=== PATIENT | female | born 1970 | race Caucasian/White ===

== ENCOUNTER 2023-02-21 05:43 | Inpatient (IN) | payer BC ==
[2023-02-16 14:35] VITALS: BMI 44.4
[2023-02-21] MEDS ORDERED: Midazolam HCl 2 mg/2 ml Vial ONE (06:34)
[2023-02-21] MEDS ORDERED: Fentanyl 250 MCG/5 ML VIAL ONE (06:34)
[2023-02-21] MEDS ORDERED: Scopolamine 1.5 mg/72 hour Patch ONE (06:37)
[2023-02-21] MEDS ORDERED: EPINEPHrine 1 MG/ML AMP ONE (06:38)
[2023-02-21] MEDS ORDERED: Bupivacaine 0.25% HCL 30 ML VIAL ONE (06:38)
[2023-02-21 06:45] LABS: #Eosinphils 0.2 thou/uL (0.0-0.7); #Monocytes 0.4 thou/uL (0.11-0.59); #Neutrophils 3.6 thou/uL (1.40-6.50); %Basophils 0.5 % (0.0-1.0); %Eosinophils 3.6 % (0.0-10.0); %Lymphocytes 32.7 % (21.0-51.0); %Monocytes 6.2 % (0.0-10.0); %Neutrophils 56.8 % (42.0-75.0); Hematocrit 39.3 % (36.0-47.0); Hemoglobin 12.8 g/dL (12.0-16.0); Mean Corpuscular HGB CONC 32.6 g/dL (32.0-36.0); Mean Platelet Volume 9.5 fL (7.4-10.4); Platelet Count 326 10x3/uL (130-400); RBC Distribution Width 13.8 % (11.5-14.5); Red Blood Cell (RBC) Count 4.27 mill/uL (4.20-5.40); White Blood Cell (WBC) Count 6.3 10x3/uL (4.8-10.8)
[2023-02-21] MEDS ORDERED: Ondansetron HCl/PF 4 MG/2 ML Vial IVP PRN (07:01)
[2023-02-21] MEDS ORDERED: Meperidine HCl/PF 25 MG/ML VIAL SLOW IVP PRN ×2 (07:01)
[2023-02-21] MEDS ORDERED: Promethazine HCl 25 MG/ML VIAL IM PRN ×2 (07:01→12:01)
[2023-02-21] MEDS ORDERED: HYDROmorphone 2 MG/ML VIAL SLOW IVP PRN (07:01)
[2023-02-21] MEDS ORDERED: cefOXitin 2 GM VIAL ONE ×2 (07:32→10:09)
[2023-02-21] MEDS ORDERED: Sodium Chloride 0.9% 100 ML ONE (07:32)
[2023-02-21] MEDS ORDERED: Ondansetron PF 4 MG/2 ML Vial ONE ×2 (07:33→12:05)
[2023-02-21] MEDS ORDERED: Dexamethasone 20 MG/5 ML VIAL ONE (07:33)
[2023-02-21] MEDS ORDERED: diphenhydrAMINE 50 MG/ML VIAL ONE (07:33)
[2023-02-21] MEDS ORDERED: PHENYLEPHRINE-NS 100 MCG/ML 10 ML SYRINGE ONE (07:33)
[2023-02-21] MEDS ORDERED: PROPOFOL 200 MG/20 ML VIAL ONE (07:33)
[2023-02-21] MEDS ORDERED: Succinylcholine 200 MG/10 ml SYRINGE FS ONE (07:33)
[2023-02-21] MEDS ORDERED: Rocuronium Bromide 10 MG/ML (10ML VIAL) ONE (07:33)
[2023-02-21] MEDS ORDERED: Lidocaine 1% PF 5 ML VIAL ONE (07:33)
[2023-02-21] MEDS ORDERED: SUGAMMADEX SODIUM 200 MG/2 ML VIAL ONE (10:03)
[2023-02-21] MEDS ORDERED: Rocuronium Bromide 50 MG/5 ML VIAL ONE (10:03)
[2023-02-21] MEDS ORDERED: Sevoflurane 250 ML INH ANEST BOTTLE ONE (10:03)
[2023-02-21] MEDS ORDERED: Ondansetron PF 4 MG/2 ML Vial IVP PRN (12:01)
[2023-02-21] MEDS ORDERED: HumaLOG 300 UNITS/3 ML VIAL SC PRN (12:01)
[2023-02-21] MEDS ORDERED: hydrALAZINE 20 MG/ML VIAL SLOW IVP PRN (12:01)
[2023-02-21] MEDS ORDERED: diphenhydrAMINE 50 MG/ML VIAL IVP PRN (12:01)
[2023-02-21] MEDS ORDERED: Dextrose 50% Abboject 50 ML SYRINGE SLOW IVP PRN (12:01)
[2023-02-21] MEDS ORDERED: Dextrose 5% in Water 1,000 ML IV PRN (12:01)
[2023-02-21] MEDS ORDERED: Ipratropium/Albuterol 3 ML NEB NEB PRN (12:01)
[2023-02-21] MEDS ORDERED: Glucagon 1 MG/ML KIT IM PRN (12:01)
[2023-02-21] MEDS ORDERED: fentaNYL 50 mcg/mL 1 mL Vial ONE (12:05)
[2023-02-21] MEDS ORDERED: fentaNYL PF 100 MCG/2 ML SYRINGE ONE (12:19)
[2023-02-21] MEDS ORDERED: HYDROmorphone 0.5 MG/0.5 ML SYRINGE ONE (12:29)
[2023-02-21] MEDS: D5 1/2 NS w/20 mEq KCL 1,000 ML IV SCH ×2 (14:53→23:17)
[2023-02-21] MEDS: Morphine 2 MG/ML VIAL SLOW IVP PRN ×2 (15:09→19:41)
[2023-02-21] MEDS: Ketorolac Tromethamine 30 MG/ML VIAL IVP SCH ×2 (17:24→23:17)
[2023-02-21] MEDS: busPIRone HCl 10 MG TAB PO SCH (19:32)
[2023-02-22] MEDS: D5 1/2 NS w/20 mEq KCL 1,000 ML IV SCH ×2 (05:15→17:35)
[2023-02-22] MEDS: Ketorolac Tromethamine 30 MG/ML VIAL IVP SCH ×3 (05:15→17:34)
[2023-02-22 06:11] LABS: #Neutrophils 9.7 thou/uL (1.40-6.50); %Basophils 0.1 % (0.0-1.0); %Lymphocytes 9.8 % (21.0-51.0); %Monocytes 8.1 % (0.0-10.0); %Neutrophils 81.7 % (42.0-75.0); Mean Corpuscular HGB CONC 32.9 g/dL (32.0-36.0); Mean Corpuscular Hemoglobin 29.7 pg (27.0-31.0); Mean Corpuscular Volume 90.5 fl (78.0-98.0); Mean Platelet Volume 10.2 fL (7.4-10.4); Platelet Count 414 10x3/uL (130-400); RBC Distribution Width 13.8 % (11.5-14.5); Red Blood Cell (RBC) Count 3.06 mill/uL (4.20-5.40); White Blood Cell (WBC) Count 11.9 10x3/uL (4.8-10.8)
[2023-02-22 06:17] LABS: Anion Gap 14 mmol/L (10-20); BUN (Urea Nitrogen) 15 mg/dL (9.8-20.1); Calc. Creatinine Clearance 164 mL/min (70-130); Calcium 8.6 mg/dL (7.8-10.44); Carbon Dioxide 19 mmol/L (22-29); Chloride 110 mmol/L (98-107); Estimated GFR 79; Glucose 201 mg/dL (70-105); Hematocrit 27.7 % (36.0-47.0); Hemoglobin 9.1 g/dL (12.0-16.0); Potassium 4.2 mmol/L (3.5-5.1); Sodium 139 mmol/L (136-145)
[2023-02-22] MEDS ORDERED: Atenolol 25 MG TAB PO SCH (09:00)
[2023-02-22] MEDS: Pantoprazole 40 MG VIAL IVP SCH (11:21)
[2023-02-22] MEDS: busPIRone HCl 10 MG TAB PO SCH ×2 (11:22→20:03)
[2023-02-22] MEDS ORDERED: Sodium Chloride 0.9% 1,000 ML IV SCH (16:30)
[2023-02-22 16:53] LABS: #Neutrophils 7.8 thou/uL (1.40-6.50); %Basophils 0.1 % (0.0-1.0); %Lymphocytes 19.9 % (21.0-51.0); %Monocytes 9.4 % (0.0-10.0); %Neutrophils 70.2 % (42.0-75.0); Hematocrit 23.1 % (36.0-47.0); Hemoglobin 7.7 g/dL (12.0-16.0); Mean Corpuscular HGB CONC 33.3 g/dL (32.0-36.0); Mean Corpuscular Hemoglobin 30.2 pg (27.0-31.0); Mean Corpuscular Volume 90.6 fl (78.0-98.0); Mean Platelet Volume 9.7 fL (7.4-10.4); Platelet Count 387 10x3/uL (130-400); RBC Distribution Width 14.4 % (11.5-14.5); Red Blood Cell (RBC) Count 2.55 mill/uL (4.20-5.40); White Blood Cell (WBC) Count 11.1 10x3/uL (4.8-10.8)
[2023-02-22 17:42] LABS: #Monocytes 1.1 thou/uL (0.11-0.59); #Neutrophils 7.5 thou/uL (1.40-6.50); %Basophils 0.1 % (0.0-1.0); %Lymphocytes 22.1 % (21.0-51.0); %Monocytes 9.6 % (0.0-10.0); %Neutrophils 67.7 % (42.0-75.0); Hematocrit 23.7 % (36.0-47.0); Hemoglobin 7.8 g/dL (12.0-16.0); Mean Corpuscular HGB CONC 32.9 g/dL (32.0-36.0); Mean Corpuscular Hemoglobin 30.4 pg (27.0-31.0); Mean Corpuscular Volume 92.2 fl (78.0-98.0); Mean Platelet Volume 9.5 fL (7.4-10.4); Platelet Count 378 10x3/uL (130-400); RBC Distribution Width 14.3 % (11.5-14.5); Red Blood Cell (RBC) Count 2.57 mill/uL (4.20-5.40)
[2023-02-22] MEDS: Morphine 2 MG/ML VIAL SLOW IVP PRN (20:04)
[2023-02-23] MEDS: D5 1/2 NS w/20 mEq KCL 1,000 ML IV SCH ×5 (01:02→23:49)
[2023-02-23] MEDS: Ketorolac Tromethamine 30 MG/ML VIAL IVP SCH ×4 (01:02→23:49)
[2023-02-23 06:57] LABS: #Neutrophils 5.6 thou/uL (1.40-6.50); %Basophils 0.1 % (0.0-1.0); %Lymphocytes 31.8 % (21.0-51.0); %Monocytes 10.2 % (0.0-10.0); %Neutrophils 57.4 % (42.0-75.0); Hematocrit 24.2 % (36.0-47.0); Hemoglobin 7.9 g/dL (12.0-16.0); Mean Corpuscular HGB CONC 32.6 g/dL (32.0-36.0); Mean Corpuscular Hemoglobin 29.4 pg (27.0-31.0); Mean Platelet Volume 9.2 fL (7.4-10.4); Platelet Count 296 10x3/uL (130-400); RBC Distribution Width 15.8 % (11.5-14.5); Red Blood Cell (RBC) Count 2.69 mill/uL (4.20-5.40); White Blood Cell (WBC) Count 9.8 10x3/uL (4.8-10.8)
[2023-02-23 07:19] LABS: Anion Gap 8 mmol/L (10-20); BUN (Urea Nitrogen) 14 mg/dL (9.8-20.1); Calc. Creatinine Clearance 183 mL/min (70-130); Calcium 8.4 mg/dL (7.8-10.44); Carbon Dioxide 24 mmol/L (22-29); Chloride 112 mmol/L (98-107); Estimated GFR 90; Glucose 141 mg/dL (70-105); Potassium 3.7 mmol/L (3.5-5.1); Sodium 140 mmol/L (136-145)
[2023-02-23] MEDS: Pantoprazole 40 MG VIAL IVP SCH (10:27)
[2023-02-23] MEDS: busPIRone HCl 10 MG TAB PO SCH ×2 (10:27→20:41)
[2023-02-23] MEDS: Hydrocodone-Acetamin 15 ML UDCUP PO PRN ×2 (10:27→20:41)
[2023-02-23 18:45] LABS: #Monocytes 0.8 thou/uL (0.11-0.59); #Neutrophils 5.2 thou/uL (1.40-6.50); %Basophils 0.2 % (0.0-1.0); %Eosinophils 0.2 % (0.0-10.0); %Lymphocytes 32.4 % (21.0-51.0); %Neutrophils 57.6 % (42.0-75.0); Hematocrit 25.1 % (36.0-47.0); Hemoglobin 8.1 g/dL (12.0-16.0); Mean Corpuscular HGB CONC 32.3 g/dL (32.0-36.0); Mean Corpuscular Hemoglobin 29.1 pg (27.0-31.0); Mean Corpuscular Volume 90.3 fl (78.0-98.0); Mean Platelet Volume 9.7 fL (7.4-10.4); Platelet Count 300 10x3/uL (130-400); RBC Distribution Width 15.7 % (11.5-14.5); Red Blood Cell (RBC) Count 2.78 mill/uL (4.20-5.40); White Blood Cell (WBC) Count 9.1 10x3/uL (4.8-10.8)
[2023-02-24 04:35] LABS: #Eosinphils 0.1 thou/uL (0.0-0.7); #Monocytes 0.6 thou/uL (0.11-0.59); #Neutrophils 3.5 thou/uL (1.40-6.50); %Basophils 0.3 % (0.0-1.0); %Eosinophils 1.5 % (0.0-10.0); %Lymphocytes 42.5 % (21.0-51.0); %Monocytes 8.3 % (0.0-10.0); %Neutrophils 47.1 % (42.0-75.0); Hematocrit 23.9 % (36.0-47.0); Hemoglobin 7.6 g/dL (12.0-16.0); Mean Corpuscular HGB CONC 31.8 g/dL (32.0-36.0); Mean Corpuscular Hemoglobin 28.9 pg (27.0-31.0); Mean Corpuscular Volume 90.9 fl (78.0-98.0); Mean Platelet Volume 9.6 fL (7.4-10.4); Platelet Count 295 10x3/uL (130-400); RBC Distribution Width 15.8 % (11.5-14.5); Red Blood Cell (RBC) Count 2.63 mill/uL (4.20-5.40); White Blood Cell (WBC) Count 7.5 10x3/uL (4.8-10.8)
[2023-02-24] MEDS: Ketorolac Tromethamine 30 MG/ML VIAL IVP SCH (05:23)
[2023-02-24] MEDS: Hydrocodone-Acetamin 15 ML UDCUP PO PRN (09:18)
[2023-02-24] MEDS: busPIRone HCl 10 MG TAB PO SCH (09:19)
[2023-02-24] MEDS: Pantoprazole 40 MG VIAL IVP SCH (09:23)
[2023-02-24] MEDS ORDERED: FLU VACC QS2023-24(6MOS UP)/PF 60 MCG/0.5 ML SYRINGE IM ONE (15:00)
[2023-02-24 15:30] VITALS: BP 103/72; TEMP 97
== END 2023-02-24 16:40 | disposition home or self-care (01) | DRG 335 ==
LOC: SURG A 05:43
PROVIDERS: ADMIT Surgery; ATTEND Surgery
PROC: 0DNU4ZZ Release Omentum, Percutaneous Endoscopic Approach (ICD-10-PCS; principal; 2023-02-21)
PROC: 0DBA4ZZ Excision of Jejunum, Percutaneous Endoscopic Approach (ICD-10-PCS; 2023-02-21)
PROC: 0DN84ZZ Release Small Intestine, Percutaneous Endoscopic Approach (ICD-10-PCS; 2023-02-21)
PROC: 30233N1 Transfusion of Nonautologous Red Blood Cells into Peripheral Vein, Percutaneous Approach (ICD-10-PCS; 2023-02-22)
DX: K95.89 Other complications of other bariatric procedure (principal); K63.1 Perforation of intestine (nontraumatic); D62 Acute posthemorrhagic anemia; Z68.41 Body mass index [BMI] 40.0-44.9, adult; K21.9 Gastro-esophageal reflux disease without esophagitis; E66.01 Morbid (severe) obesity due to excess calories; M19.90 Unspecified osteoarthritis, unspecified site; E88.810 Metabolic syndrome; J45.909 Unspecified asthma, uncomplicated; M17.0 Bilateral primary osteoarthritis of knee; G89.4 Chronic pain syndrome; F32.A Depression, unspecified; I10 Essential (primary) hypertension; E78.5 Hyperlipidemia, unspecified; G43.909 Migraine, unspecified, not intractable, without status migrainosus; E11.51 Type 2 diabetes mellitus with diabetic peripheral angiopathy without gangrene; Z98.890 Other specified postprocedural states; Z90.49 Acquired absence of other specified parts of digestive tract; I95.1 Orthostatic hypotension; K20.90 Esophagitis, unspecified without bleeding; K66.0 Peritoneal adhesions (postprocedural) (postinfection); K25.9 Gastric ulcer, unspecified as acute or chronic, without hemorrhage or perforation
CPT/HCPCS: 36415; 36416; 36430; 74240; 80048; 85025; 86850; 86900; 86901; 88307; 93005; 93010; C9113; J0171; J0694; J1100; J1170; J1200; J1650; J1885; J2250; J2272; J2405; J2704; J3010; J3480; J3490; J7050; P9016; S0020